=== PATIENT | female | born 1965 | race Caucasian/White ===

== ENCOUNTER → 2016-10-03 | Outpatient (CLI) | payer BC ==
[2016-10-03 11:45] LABS: BASO % 0.7 % (0.0-1.0); EOS % 0.6 % (0.0-3.0); LARGE UNSTAINED CELL # 0.1 K/mm3 (0.0-0.4); LARGE UNSTAINED CELL % 1.2 % (0.0-4.0); LYMPH # 1.9 K/mm3 (1.5-4.5); LYMPH % 24.2 % (24.0-44.0); MEAN CORPUSCULAR HEMOGLOBIN 30.4 pg (27.0-33.0); MEAN CORPUSCULAR HGB CONC 33.2 g/dl (32.0-36.5); MEAN CORPUSCULAR VOLUME 91.6 fl (80.0-96.0); MONO # 0.5 K/mm3 (0.0-0.8); MONO % 6.9 % (0.0-5.0); NEUTROPHILS # 4.9 K/mm3 (1.8-7.7); NEUTROPHILS % 66.3 % (36.0-66.0); PLATELET COUNT, AUTOMATED 305 k/mm3 (150-450); RED CELL DISTRIBUTION WIDTH 12.8 % (11.5-14.5); WHITE BLOOD COUNT 7.3 K/mm3 (4.0-10.0)
[2016-10-03 12:27] LABS: ALBUMIN 3.6 GM/DL (3.2-5.2); ALBUMIN/GLOBULIN RATIO 1.24 (1.00-1.93); ALKALINE PHOSPHATASE 79 U/L (45-117); ALT/SGPT 27 U/L (12-78); ANION GAP 6 MEQ/L (8-16); AST/SGOT 15 U/L (15-37); BILIRUBIN,TOTAL 0.6 MG/DL (0.2-1.0); BLOOD UREA NITROGEN 13 MG/DL (7-18); CALCIUM LEVEL 9.3 MG/DL (8.5-10.1); CARBON DIOXIDE LEVEL 29 MEQ/L (21-32); CHLORIDE LEVEL 106 MEQ/L (98-107); CHOLESTEROL LEVEL 191 MG/DL (<200); CREATININE FOR GFR 0.85 MG/DL (0.55-1.02); FREE T4 1.02 NG/DL (0.76-1.46); GLOMERULAR FILTRATION RATE > 60.0 (>51); GLUCOSE, FASTING 89 MG/DL (70-105); POTASSIUM SERUM 5.1 MEQ/L (3.5-5.1); SODIUM LEVEL 141 MEQ/L (136-145); TOTAL PROTEIN 6.5 GM/DL (6.4-8.2); TRIGLYCERIDES LEVEL 134 MG/DL (<150)
== END ==
LOC: M SMT 09:01
PROVIDERS: ATTEND Nurse Practitioner Family
DX: R53.83 Other fatigue (principal); E78.4 Other hyperlipidemia

== ENCOUNTER → 2017-04-14 | Outpatient (CLI) | payer BC ==
[2017-04-14 14:10] LABS: ALBUMIN 3.8 GM/DL (3.2-5.2); ALBUMIN/GLOBULIN RATIO 1.31 (1.00-1.93); ALKALINE PHOSPHATASE 71 U/L (45-117); ALT/SGPT 20 U/L (12-78); ANION GAP 8 MEQ/L (8-16); AST/SGOT 13 U/L (7-37); BILIRUBIN,TOTAL 0.5 MG/DL (0.2-1.0); BLOOD UREA NITROGEN 11 MG/DL (7-18); CALCIUM LEVEL 9.7 MG/DL (8.5-10.1); CARBON DIOXIDE LEVEL 29 MEQ/L (21-32); CHLORIDE LEVEL 106 MEQ/L (98-107); CHOLESTEROL LEVEL 198 MG/DL (<200); CREATININE FOR GFR 0.77 MG/DL (0.55-1.02); GLOMERULAR FILTRATION RATE > 60.0 (>51); GLUCOSE, FASTING 91 MG/DL (70-105); POTASSIUM SERUM 4.6 MEQ/L (3.5-5.1); SODIUM LEVEL 143 MEQ/L (136-145); TOTAL PROTEIN 6.7 GM/DL (6.4-8.2); TRIGLYCERIDES LEVEL 100 MG/DL (<150)
[2017-04-14 14:18] LABS: BASO # 0.1 10^3/uL (0.0-0.2); BASO % 0.8 % (0.0-1.0); EOS % 0.4 % (0.0-3.0); IMMATURE GRANULOCYTE % 0.5 % (0-0); LYMPH % 26.8 % (24.0-44.0); MEAN CORPUSCULAR HEMOGLOBIN 30.1 pg (27.0-33.0); MEAN CORPUSCULAR HGB CONC 32.7 g/dl (32.0-36.5); MEAN CORPUSCULAR VOLUME 92.2 fl (80.0-96.0); MONO # 0.7 10^3/uL (0.0-0.8); MONO % 9.3 % (0.0-5.0); NEUTROPHILS # 4.7 10^3/uL (1.8-7.7); NEUTROPHILS % 62.2 % (36.0-66.0); PLATELET COUNT, AUTOMATED 298 10^3/uL (150-450); RED CELL DISTRIBUTION WIDTH 13.2 % (11.5-14.5); WHITE BLOOD COUNT 7.5 10^3/uL (4.0-10.0)
== END ==
LOC: M SMT 08:08
PROVIDERS: ATTEND Nurse Practitioner Family
DX: F41.9 Anxiety disorder, unspecified (principal); E55.9 Vitamin D deficiency, unspecified; E78.4 Other hyperlipidemia

== ENCOUNTER 2017-07-13 06:58 | Day surgery (SDC) | payer BC ==
[2017-07-13] MEDS ORDERED: LIDOCAINE 2% INJ 100 MG/5 ML SDV (FOR ANES.) As Ordered (07:02)
[2017-07-13] MEDS ORDERED: PROPOFOL 200 MG/20 ML VIAL As Ordered (07:02)
[2017-07-13] MEDS ORDERED: NS 1,000 ML IV (08:00)
== END 2017-07-13 08:43 | disposition home or self-care (01) ==
LOC: M OPP 06:58
DX: Z12.11 Encounter for screening for malignant neoplasm of colon (principal); K64.0 First degree hemorrhoids; K62.1 Rectal polyp; K57.30 Diverticulosis of large intestine without perforation or abscess without bleeding; Z80.0 Family history of malignant neoplasm of digestive organs; R51 Headache; J44.9 Chronic obstructive pulmonary disease, unspecified; F17.210 Nicotine dependence, cigarettes, uncomplicated; Z79.82 Long term (current) use of aspirin; Z79.899 Other long term (current) drug therapy
CPT/HCPCS: 45380

== ENCOUNTER → 2017-10-07 | Outpatient (CLI) | payer BC ==
[2017-10-07 13:44] LABS: BASO % 0.6 % (0.0-1.0); EOS % 0.6 % (0.0-3.0); HEMATOCRIT 46.7 % (36.0-47.0); HEMOGLOBIN 15.3 g/dl (12.0-15.5); IMMATURE GRANULOCYTE % 0.5 % (0-3.0); LYMPH # 1.8 10^3/uL (1.5-4.5); LYMPH % 27.9 % (24.0-44.0); MEAN CORPUSCULAR HEMOGLOBIN 30.3 pg (27.0-33.0); MEAN CORPUSCULAR HGB CONC 32.8 g/dl (32.0-36.5); MEAN CORPUSCULAR VOLUME 92.5 fl (80.0-96.0); MONO # 0.6 10^3/uL (0.0-0.8); MONO % 9.1 % (0.0-5.0); NEUTROPHILS % 61.3 % (36.0-66.0); PLATELET COUNT, AUTOMATED 299 10^3/uL (150-450); RED BLOOD COUNT 5.05 10^6/uL (4.00-5.40); RED CELL DISTRIBUTION WIDTH 13.4 % (11.5-14.5); WHITE BLOOD COUNT 6.6 10^3/uL (4.0-10.0)
[2017-10-07 14:10] LABS: TOTAL 25(OH) VITAMIN D 52.8 NG/ML (30.0-100.0)
[2017-10-07 14:20] LABS: ALBUMIN 3.7 GM/DL (3.2-5.2); ALBUMIN/GLOBULIN RATIO 1.23 (1.00-1.93); ALKALINE PHOSPHATASE 74 U/L (45-117); ALT/SGPT 19 U/L (12-78); ANION GAP 5 MEQ/L (8-16); AST/SGOT 13 U/L (7-37); BILIRUBIN,TOTAL 0.4 MG/DL (0.2-1.0); BLOOD UREA NITROGEN 14 MG/DL (7-18); CALCIUM LEVEL 9.1 MG/DL (8.5-10.1); CARBON DIOXIDE LEVEL 28 MEQ/L (21-32); CHLORIDE LEVEL 111 MEQ/L (98-107); CHOLESTEROL LEVEL 210 MG/DL (<200); CREATININE FOR GFR 0.63 MG/DL (0.55-1.30); FREE T4 0.85 NG/DL (0.76-1.46); GLOMERULAR FILTRATION RATE > 60.0 (>51); GLUCOSE, FASTING 91 MG/DL (70-100); HDL CHOLESTEROL 60 MG/DL (>40); NON-HDL-C 150 MG/DL; POTASSIUM SERUM 4.9 MEQ/L (3.5-5.1); SODIUM LEVEL 144 MEQ/L (136-145); TOTAL PROTEIN 6.7 GM/DL (6.4-8.2); TRIGLYCERIDES LEVEL 95 MG/DL (<150)
== END ==
LOC: M SMT 08:10
DX: F41.9 Anxiety disorder, unspecified (principal); E55.9 Vitamin D deficiency, unspecified; E78.4 Other hyperlipidemia
CPT/HCPCS: 84443

== ENCOUNTER → 2018-04-08 | Outpatient (CLI) | payer BC ==
[2018-04-08 09:21] LABS: BASO # 0.1 10^3/uL (0.0-0.2); BASO % 0.6 % (0.0-1.0); EOS # 0.1 10^3/uL (0.0-0.50); EOS % 0.6 % (0.0-3.0); IMMATURE GRANULOCYTE % 0.5 % (0-3.0); LYMPH # 2.1 10^3/uL (1.5-4.5); LYMPH % 24.7 % (24.0-44.0); MEAN CORPUSCULAR HEMOGLOBIN 30.1 pg (27.0-33.0); MEAN CORPUSCULAR HGB CONC 32.7 g/dl (32.0-36.5); MEAN CORPUSCULAR VOLUME 92.1 fl (80.0-96.0); MONO # 0.7 10^3/uL (0.0-0.8); MONO % 8.1 % (0.0-5.0); NEUTROPHILS # 5.6 10^3/uL (1.8-7.7); NEUTROPHILS % 65.5 % (36.0-66.0); PLATELET COUNT, AUTOMATED 291 10^3/uL (150-450); RED BLOOD COUNT 5.32 10^6/uL (4.00-5.40); RED CELL DISTRIBUTION WIDTH 13.2 % (11.5-14.5); WHITE BLOOD COUNT 8.6 10^3/uL (4.0-10.0)
[2018-04-08 09:54] LABS: ALBUMIN 3.8 GM/DL (3.2-5.2); ALBUMIN/GLOBULIN RATIO 1.36 (1.00-1.93); ALKALINE PHOSPHATASE 89 U/L (45-117); ALT/SGPT 24 U/L (12-78); ANION GAP 5 MEQ/L (8-16); AST/SGOT 14 U/L (7-37); BILIRUBIN,TOTAL 0.4 MG/DL (0.2-1.0); BLOOD UREA NITROGEN 13 MG/DL (7-18); CALCIUM LEVEL 9.5 MG/DL (8.5-10.1); CARBON DIOXIDE LEVEL 30 MEQ/L (21-32); CHLORIDE LEVEL 106 MEQ/L (98-107); CHOLESTEROL LEVEL 184 MG/DL (<200); CHOLESTEROL RISK RATIO 3.228 (<5); GLOMERULAR FILTRATION RATE > 60.0 (>51); GLUCOSE, FASTING 96 MG/DL (70-100); HDL CHOLESTEROL 57 MG/DL (>40); LDL CHOLESTEROL 110 MG/DL (<100); NON-HDL-C 127 MG/DL; SODIUM LEVEL 141 MEQ/L (136-145); TOTAL PROTEIN 6.6 GM/DL (6.4-8.2); TRIGLYCERIDES LEVEL 85 MG/DL (<150)
[2018-04-08 11:38] LABS: TOTAL 25(OH) VITAMIN D 65.1 NG/ML (30.0-100.0)
== END ==
LOC: M WUC 08:20
DX: R91.8 Other nonspecific abnormal finding of lung field (principal); K21.9 Gastro-esophageal reflux disease without esophagitis; F17.210 Nicotine dependence, cigarettes, uncomplicated; E55.9 Vitamin D deficiency, unspecified; E78.49 Other hyperlipidemia
CPT/HCPCS: 80053

== ENCOUNTER → 2018-08-30 | Outpatient (CLI) | payer OTHER ==
[~2018-08-30] MED LIST: ASPI81TA26 PO; ATEN25TA PO; D-3-50003 PO; FLON1SPR NARES; NICO14DI3 TD; OMEP40CA2 PO; SIMV20TA2 PO; VENTAER INH; XANA0.25 PO
[2018-08-30 11:36] LABS: HEMATOCRIT 47.2 % (36.0-47.0); HEMOGLOBIN 15.5 g/dl (12.0-15.5); MEAN CORPUSCULAR HEMOGLOBIN 29.5 pg (27.0-33.0); MEAN CORPUSCULAR HGB CONC 32.8 g/dl (32.0-36.5); MEAN CORPUSCULAR VOLUME 89.9 fl (80.0-96.0); PLATELET COUNT, AUTOMATED 287 10^3/uL (150-450); RED BLOOD COUNT 5.25 10^6/uL (4.00-5.40); WHITE BLOOD COUNT 6.9 10^3/uL (4.0-10.0)
[2018-08-30 11:55] LABS: INR 0.94; PROTHROMBIN TIME 12.7 SECONDS (12.1-14.4)
[2018-08-30 11:56] LABS: BLOOD UREA NITROGEN 12 MG/DL (7-18); CALCIUM LEVEL 9.3 MG/DL (8.5-10.1); CARBON DIOXIDE LEVEL 27 MEQ/L (21-32); CHLORIDE LEVEL 106 MEQ/L (98-107); CREATININE FOR GFR 0.79 MG/DL (0.55-1.30); GLOMERULAR FILTRATION RATE > 60.0 (>51); GLUCOSE, FASTING 93 MG/DL (70-100); PARTIAL THROMBOPLASTIN TIME 28.9 SECONDS (25.4-37.6); POTASSIUM SERUM 4.2 MEQ/L (3.5-5.1); SODIUM LEVEL 139 MEQ/L (136-145)
[2018-08-30 11:56] LABS: APPEARANCE, URINE CLEAR (CLEAR); BACTERIA, URINE AUTO 3+ (NEGATIVE); BILIRUBIN, URINE AUTO NEGATIVE (NEGATIVE); BLOOD, URINE BLOOD 1+ (NEGATIVE); COLOR, URINE YELLOW (YELLOW); GLUCOSE, URINE (UA) AUTO NEGATIVE (NEGATIVE); KETONE, URINE AUTO NEGATIVE (NEGATIVE); LEUKOCYTE ESTERASE, URINE AUTO NEGATIVE (NEGATIVE); MUCUS, URINE SMALL (NEGATIVE); NITRITE, URINE AUTO NEGATIVE (NEGATIVE); PROTEIN, URINE AUTO NEGATIVE (NEGATIVE); RBC, URINE AUTO 2 /HPF (0-3); SQUAMOUS EPITHELIAL CELL UR AU 1 /HPF (0-6); UROBILINOGEN, URINE AUTO 0.2 mg/dL (0.0-2.0); WBC, URINE AUTO 1 /HPF (0-3)
[2018-08-30 11:57] LABS: ABG HCO3 23.4 MEQ/L (22.0-26.0); ABG O2 SATURATION 95.5 % (95.0-99.0); ABG PARTIAL PRESSURE CO2 34.7 mmHg (35.0-45.0); ABG PARTIAL PRESSURE O2 73.4 mmHg (75.0-100.0); ABG STANDARD HCO3 24.4 MEQ/L (22.0-26.0); ABG TOTAL CO2 24.4 MEQ/L (22.0-29.0); ABG pH (ARTERIAL) 7.446 UNITS (7.350-7.450)
--- NOTE | 2018-08-30 16:44 | ECGEPIP ---
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 Electronically Signed On 08-30-2018 16:44:03 EDT by Stuart Higgins
== END ==
LOC: M ADMPAT 11:03
PROVIDERS: ATTEND Thoracic Surgery (Cardiothoracic Vascular Surgery)
DX: Z01.810 Encounter for preprocedural cardiovascular examination (principal); R00.1 Bradycardia, unspecified

== ENCOUNTER 2018-09-06 05:53 | Inpatient (IN) | payer OTHER ==
[2018-08-30 12:00] VITALS: BP 126/78
--- NOTE | 2018-08-31 10:39 | REP ---
Clinical: Preoperative assessment. Pericardial cyst. Technique: PA and lateral. Comparison: 04/08/2018. Findings: The mediastinal contour remain stable and consistent with pericardial cyst. Airway is patent and midline. Chronic scoliosis noted. Lung rivas are well-aerated and clear. Skeletal structures are intact. Impression: No acute cardiopulmonary process. Electronically Signed by Chidi Matamoros MD 08/31/2018 10:31 A
[2018-09-06] VITALS (9 sets, daily range): BP systolic 90–109; BP diastolic 53–60
[~2018-09-06] VITALS: Ht 160 cm; Wt 87.0 kg
[~2018-09-06 05:53] MED LIST changes: -NICO14DI3 TD
[2018-09-06] MEDS ORDERED: NICO14DI3 TD (06:29)
[2018-09-06] MEDS ORDERED: MUPIROCIN 2% OINT 22 GM TUBE TOP ONE (06:30)
[2018-09-06] MEDS ORDERED: BUPIVACAINE HCL 0.5% 10 ML VIAL As Ordered ONE ×2 (06:46→07:48)
[2018-09-06] MEDS ORDERED: BUPIVACAINE LIPOSOME/PF 1.3% 20ML VIAL (13.3MG/ML)(EXPAREL)(C9290 PER1MG) As Ordered ONE (06:46)
[2018-09-06] MEDS ORDERED: MIDAZOLAM INJ 2 MG/2 ML VIAL (J2250) As Ordered ONE (06:52)
[2018-09-06] MEDS ORDERED: fentaNYL 100 MCG/2 ML INJECTION (J3010) As Ordered ONE (06:52)
[2018-09-06] MEDS ORDERED: CETACAINE SPRAY 5GM As Ordered ONE (06:56)
[2018-09-06] MEDS ORDERED: LR 1,000 ML IV ONE (07:00)
[2018-09-06] MEDS: MIDAZOLAM INJ 2 MG/2 ML VIAL (J2250) IV PRN ×2 (07:21→07:25)
[2018-09-06] MEDS: fentaNYL 100 MCG/2 ML INJECTION (J3010) IV PRN ×2 (07:21→07:32)
[2018-09-06] MEDS ORDERED: EPIDURAL/PCA KEYS XX PRN (08:45)
[2018-09-06] MEDS ORDERED: diphenhydrAMINE INJ 50MG/ML VIAL (J1200) IV PRN (08:45)
[2018-09-06] MEDS ORDERED: NALOXONE INJ 0.4 MG/1 ML VIAL (J2310) IV PRN (08:45)
[2018-09-06] MEDS ORDERED: ONDANSETRON 4MG/2ML VIAL (J2405) IV PRN ×2 (08:45→11:30)
[2018-09-06] MEDS ORDERED: WALLBOXKEY XX PRN (08:45)
[2018-09-06] MEDS ORDERED: METOCLOPRAMIDE INJ 10MG/2ML VIAL (J2765) IV PRN (08:45)
[2018-09-06] MEDS ORDERED: PERCOCET 5MG/325MG TAB PO PRN ×3 (11:00→11:30)
[2018-09-06] MEDS ORDERED: BISACODYL 10 MG SUPP PR PRN (11:00)
[2018-09-06] MEDS ORDERED: ACETAMINOPHEN TAB 650MG DOSE (2X325MG) PO PRN (11:00)
[2018-09-06] MEDS ORDERED: NORCO, ANEXSIA 5/325MG TABLET (HYDROcodone/ACETAMINOPHEN) PO PRN (11:00)
[2018-09-06] MEDS ORDERED: LEVALBUTEROL 1.25 MG/0.5 ML CONCENTRATE NEB NEB PRN (11:00)
[2018-09-06 11:15] LABS: ABG HCO3 22.9 MEQ/L (22.0-26.0); ABG O2 SATURATION 94.6 % (95.0-99.0); ABG PARTIAL PRESSURE CO2 44.1 mmHg (35.0-45.0); ABG PARTIAL PRESSURE O2 76.5 mmHg (75.0-100.0); ABG STANDARD HCO3 21.9 MEQ/L (22.0-26.0); ABG TOTAL CO2 24.3 MEQ/L (22.0-29.0); ABG pH (ARTERIAL) 7.334 UNITS (7.350-7.450)
[2018-09-06] MEDS: KETOROLAC 30 MG/ML VIAL (J1885) IV SCH ×2 (11:18→17:20)
[2018-09-06] MEDS ORDERED: fentaNYL 100 MCG/2 ML INJECTION (J3010) IV PRN (11:30)
[2018-09-06] MEDS ORDERED: LR 1,000 ML IV SCH (11:30)
[2018-09-06 11:32] LABS: BASO % 0.4 % (0.0-1.0); HEMATOCRIT 43.7 % (36.0-47.0); HEMOGLOBIN 14.1 g/dl (12.0-15.5); LYMPH # 0.9 10^3/uL (1.5-4.5); LYMPH % 8.2 % (24.0-44.0); MEAN CORPUSCULAR HGB CONC 32.3 g/dl (32.0-36.5); MEAN CORPUSCULAR VOLUME 89.9 fl (80.0-96.0); MONO # 0.2 10^3/uL (0.0-0.8); NEUTROPHILS # 9.8 10^3/uL (1.8-7.7); NEUTROPHILS % 88.8 % (36.0-66.0); PLATELET COUNT, AUTOMATED 263 10^3/uL (150-450); RED BLOOD COUNT 4.86 10^6/uL (4.00-5.40); WHITE BLOOD COUNT 11.1 10^3/uL (4.0-10.0)
[2018-09-06 11:55] LABS: BLOOD UREA NITROGEN 13 MG/DL (7-18); CALCIUM LEVEL 7.8 MG/DL (8.5-10.1); CARBON DIOXIDE LEVEL 24 MEQ/L (21-32); CHLORIDE LEVEL 113 MEQ/L (98-107); CREATININE FOR GFR 0.68 MG/DL (0.55-1.30); GLOMERULAR FILTRATION RATE > 60.0 (>51); GLUCOSE, FASTING 119 MG/DL (70-100); POTASSIUM SERUM 4.1 MEQ/L (3.5-5.1); SODIUM LEVEL 142 MEQ/L (136-145)
--- NOTE | 2018-09-06 12:08 | RO ---
DATE OF PROCEDURE: 09/06/2018 PREPROCEDURE DIAGNOSIS: Large pericardial cyst. POSTPROCEDURE DIAGNOSIS: Large pericardial cyst. PROCEDURE: Excision pericardial cyst via left VATS thoracoscopy and bronchoscopy, five level rib block. SURGEON: Rodo Tinajero MD ANESTHESIA: FINDINGS: Bronchoscopy revealed a normal branching tracheobronchial tree. There were scant secretions and these were suction aspirated. There were no intrabronchial lesions. The ethan was sharp. The pericardial excision revealed a very large pericardial cyst which extended to the anterior chest wall. This was removed completely by use of VATS techniques. Phrenic nerve was assiduously identified and preserved. DESCRIPTION OF PROCEDURE: Under satisfactory general anesthesia and single-lumen tube endotracheal intubation, the bronchoscope was placed into the tracheobronchial tree. The above-findings were noted. Each segmental and subsegmental bronchus was thoroughly inspected, and there were no intrabronchial lesions. There was no impingement on the bronchus from the cyst. Patient then underwent double-lumen tube endotracheal intubation and turned into the right lateral decubitus position. Patient was positioned about 30 degrees from the supine. Draping lines were marked, and the patient was then prepped and draped in the usual sterile fashion. The first port incision was made in the approximate 6th intercostal space in the mid axillary line. This was done under insufflation, and the lung was not adherent to the chest wall. The pericardial cyst was then identified anteriorly. Two additional port incisions were made. Pericardial cyst was then taken down from the anterior chest wall. There were firm but loose adhesions from the cyst to the chest wall. This dissection was tediously continued until the entire chest wall was freed of the pericardial cyst. Attention was then turned towards the mediastinum where the phrenic nerve was identified. This was then dissected off the lateral pericardium. Finally, the great vessels were identified and the cyst was dissected off the pericardium covering the great vessels. This was all done by electrocautery and blunt dissection with peanuts and graspers. The midaxillary line 5-mm port incision was converted to a 12-mm port incision and an Endo Catch bag was placed and the cyst placed into the Endo Catch bag and delivered to the back table and eventually to pathology. Two chest tubes were placed, a #24 posterior curved tube and #24 anterior tube through two of the port incisions. The third portion incision was closed with running #0 Vicryl suture and running #4-0 Monocryl subcuticular suture. A five-level rib block was instilled with Exparel. The lung came nicely back to the chest wall under direct observation with the scope. Patient tolerated the procedure well, left the operating room in satisfactory condition to the recovery room.
--- NOTE | 2018-09-06 12:50 | REP ---
Portable chest, 11:20 a.m., single upright AP view: Comparison is 08/30/2018. The patient's previously known large left pericardial cyst is no longer identified. There are two left thoracotomy tubes as an interval change. There is no pneumothorax or pleural fluid collection. There is atelectasis inferiorly in the left lung. There is atelectasis inferiorly in the right lung. Right lung is otherwise clear. Cardiac size is normal. The mor, mediastinum, skeletal structures are unremarkable. There is an epidural catheter. Impression: 2. Left thoracotomy tubes. No pneumothorax. Atelectasis in the lung bases bilaterally. The previously known large pericardial cyst on the left is no longer identified. Electronically Signed by Keenan Fowler MD 09/06/2018 12:41 P
[2018-09-06] MEDS ORDERED: NS 500 ML IV SCH (13:00)
[2018-09-06] MEDS: FENTANYL/BUPIVACAINE/NACL BAG 250 ML EPIDURAL SCH (13:00)
[2018-09-06] MEDS: DOCUSATE SODIUM 100 MG CAP PO SCH ×2 (13:47→21:00)
[2018-09-06] MEDS: MOM 30ML SUSPENSION UDC PO SCH (13:48)
[2018-09-06] MEDS: HEPARIN SOD (PORCINE) 5000 UNITS/ML VIAL SC SCH (13:48)
[2018-09-06] MEDS: ASPIRIN 81 MG ENTERIC TAB PO SCH (13:48)
[2018-09-06] MEDS: SIMVASTATIN 20 MG TAB PO SCH (13:48)
[2018-09-06] MEDS: VITAMIN D 1,000 INTERNATIONAL UNITS TABLET PO SCH (13:49)
[2018-09-06] MEDS: KCL 20MEQ IN D5/NS 1000ML 1,000 ML IV SCH (13:50)
[2018-09-06] MEDS: ATENOLOL 12.5MG PER 1/2 TABLET PO SCH (13:50)
[2018-09-06] MEDS: NICOTINE 14 MG/24 HR TRANSDERMAL TD SCH (13:50)
[2018-09-06] MEDS: FLUTICASONE PROP 0.05% NASAL SPRAY 16 GM (FLONASE) NARES SCH (13:50)
[2018-09-06] MEDS: LEVALBUTEROL 1.25 MG/0.5 ML CONCENTRATE NEB NEB SCH ×2 (14:01→19:39)
[2018-09-06] MEDS: ceFAZolin SOD 1 GM in D5W MINI-BAG PLUS 50 ML IV SCH (17:20)
[2018-09-07] MEDS: ceFAZolin SOD 1 GM in D5W MINI-BAG PLUS 50 ML IV SCH ×4 (00:51→23:38)
[2018-09-07] MEDS: KCL 20MEQ IN D5/NS 1000ML 1,000 ML IV SCH ×2 (00:52→13:32)
[2018-09-07] MEDS: HEPARIN SOD (PORCINE) 5000 UNITS/ML VIAL SC SCH ×3 (00:52→21:00)
[2018-09-07] MEDS: KETOROLAC 30 MG/ML VIAL (J1885) IV SCH ×5 (00:53→23:39)
[2018-09-07] MEDS: LEVALBUTEROL 1.25 MG/0.5 ML CONCENTRATE NEB NEB SCH ×4 (02:25→20:18)
[2018-09-07 04:00] VITALS: BP 103/59
[2018-09-07 05:39] LABS: ABG BASE EXCESS -1.6 (-2.0-2.0); ABG HCO3 23.2 MEQ/L (22.0-26.0); ABG O2 SATURATION 96.6 % (95.0-99.0); ABG PARTIAL PRESSURE CO2 39.8 mmHg (35.0-45.0); ABG STANDARD HCO3 23.1 MEQ/L (22.0-26.0); ABG TOTAL CO2 24.5 MEQ/L (22.0-29.0); ABG pH (ARTERIAL) 7.384 UNITS (7.350-7.450)
[2018-09-07 05:44] LABS: BASO % 0.1 % (0.0-1.0); EOS % 0.3 % (0.0-3.0); HEMATOCRIT 37.7 % (36.0-47.0); HEMOGLOBIN 12.4 g/dl (12.0-15.5); LYMPH # 1.6 10^3/uL (1.5-4.5); MEAN CORPUSCULAR HEMOGLOBIN 29.7 pg (27.0-33.0); MEAN CORPUSCULAR HGB CONC 32.9 g/dl (32.0-36.5); MEAN CORPUSCULAR VOLUME 90.2 fl (80.0-96.0); MONO # 0.9 10^3/uL (0.0-0.8); MONO % 7.1 % (0.0-5.0); NEUTROPHILS # 9.9 10^3/uL (1.8-7.7); NEUTROPHILS % 79.2 % (36.0-66.0); PLATELET COUNT, AUTOMATED 240 10^3/uL (150-450); RED BLOOD COUNT 4.18 10^6/uL (4.00-5.40); WHITE BLOOD COUNT 12.5 10^3/uL (4.0-10.0)
[2018-09-07 06:04] LABS: BLOOD UREA NITROGEN 8 MG/DL (7-18); CALCIUM LEVEL 8.3 MG/DL (8.5-10.1); CARBON DIOXIDE LEVEL 27 MEQ/L (21-32); CHLORIDE LEVEL 112 MEQ/L (98-107); CREATININE FOR GFR 0.56 MG/DL (0.55-1.30); GLOMERULAR FILTRATION RATE > 60.0 (>51); GLUCOSE, FASTING 103 MG/DL (70-100); POTASSIUM SERUM 4.1 MEQ/L (3.5-5.1); SODIUM LEVEL 144 MEQ/L (136-145)
[2018-09-07 07:53] VITALS: BP 88/59
[2018-09-07 08:32] VITALS: BP 104/68
[2018-09-07] MEDS: ATENOLOL 12.5MG PER 1/2 TABLET PO SCH (09:00)
[2018-09-07] MEDS: NICOTINE 14 MG/24 HR TRANSDERMAL TD SCH (09:00)
[2018-09-07] MEDS: FLUTICASONE PROP 0.05% NASAL SPRAY 16 GM (FLONASE) NARES SCH (09:00)
[2018-09-07] MEDS: PANTOPRAZOLE 40MG TAB (PROTONIX) PO SCH (09:24)
[2018-09-07] MEDS: ASPIRIN 81 MG ENTERIC TAB PO SCH (09:24)
[2018-09-07] MEDS: VITAMIN D 1,000 INTERNATIONAL UNITS TABLET PO SCH (09:24)
[2018-09-07] MEDS: MOM 30ML SUSPENSION UDC PO SCH (09:24)
[2018-09-07] MEDS: DOCUSATE SODIUM 100 MG CAP PO SCH ×2 (09:24→21:00)
[2018-09-07] MEDS: SIMVASTATIN 20 MG TAB PO SCH (09:25)
[2018-09-07] MEDS: FENTANYL/BUPIVACAINE/NACL BAG 250 ML EPIDURAL SCH (09:26)
--- NOTE | 2018-09-07 09:38 | REP ---
Chest x-ray: Two views. History: Status post pericardial cyst excision. Comparison chest x-ray is from September 06, 2018. Comparison chest CT July 19, 2018. Findings: There are two drainage catheters in the left base pleural space. There is linear plate-like atelectasis in the perihilar region. Some volume loss is seen in the left with elevation of the left hemidiaphragm. Mild plate-like atelectasis is seen at the base as well on the left. An epidural catheter is seen along with EKG electrodes. The is no evidence of pneumothorax or hydrothorax. Electronically Signed by Jose Shay MD 09/07/2018 10:25 A
--- NOTE | 2018-09-07 11:28 | IPN ---
DATE: 09/07/2018 This is now the first postoperative day for Mrs. Mccloud who has had a stable night of surgery. Her pain is being well controlled with the epidural. Her vital signs show a maximum temperature (T-max) of 98.2 with a heart rate that ranges between 73 and 76 in sinus rhythm. Respiratory rate is constant at 18, who is 93% saturated on 2 liters nasal cannula and has blood pressures ranging between 90/53 and 103/59. Her intake and output over the past 24 hours is being recorded as 3840 in and 2545 out for a positivity of 1295 mL. She has put out 150 mL out the chest tube and there is no air leak. Weight today is 85.6 kg compared to 81 kg yesterday. On physical examination her lungs show normal fascicular sounds without wheezes, rhonchi or rales. Percussion note is full to the diaphragm. Cardiac exam is without murmurs, clicks or gallops or rubs. I cannot feel her point of maximum impulse (PMI). S1 and S2 are normal. Abdomen is soft and nontender. Bowel sounds are positive. There is no hepatomegaly. No costovertebral angle (CVA) tenderness. Extremities show no pretibial edema with no calf tenderness. No differential swelling of the upper extremities. Skin is warm, dry and perfused without cyanosis or mottling including that of the nail beds and knees. Neck is supple. There is no jugular venous distention. No subcutaneous emphysema. Trachea is midline. Mouth shows her mucous membranes to be pink and moist. Lips and commissures are without lesions. There is no thrush. Eyes show her pupils to be equal and reactive. Extraocular movements intact. Sclerae nonicteric. Neurologic shows II-XII intact along with gross motor and gross sensation intact. Gait is not tested. Psychiatric showed her to be awake, alert and oriented times three with appropriate and affect and conversational. Her blood gases this morning show a pH of 7.38, pCO2 39, pO2 87 on the above oxygen. She is at base excess of -1.6. White count today is 12.5 with hemoglobin and hematocrit of 12.4 and 37.7, down from 14.1 and 43.7 yesterday. This is probably secondary to hemodilution. Platelet count is 240 and stable and differential shows 79% neutrophils, 15% lymphocytes, 7% monocytes. There are no immature forms or toxic granulations. Her electrolytes are normal with a BUN and creatinine of 8 and 0.56 and a glucose of 1.3 and a calcium 8.3. Her chest x-ray today shows her lung fully expanded to the chest wall. Chest tubes are in good place. Pericardial cyst is now absent from the preoperative film. IMPRESSION: 1. Postop day #1 status post excision of pericardial cyst. 2. Asthma. 3. Tobacco dependence. 4. Gastroesophageal reflux disease. 5. Hyperlipidemia. PLAN/DISCUSSION: I will discontinue her chest tubes today. I will wean the epidural and discontinue the Howard. If her pain is well controlled, I will consider discharging her tomorrow. I will also gently diurese her.
[2018-09-07] MEDS ORDERED: FUROSEMIDE 20 MG/2 ML VIAL (J1940) IV ONE (11:30)
[2018-09-07 12:07] VITALS: BP 101/58
[2018-09-07 16:00] VITALS: BP 116/64
[2018-09-07 20:00] VITALS: BP 90/60
[2018-09-08] VITALS: BP 115/71
[2018-09-08] MEDS: LEVALBUTEROL 1.25 MG/0.5 ML CONCENTRATE NEB NEB SCH ×2 (01:53→07:29)
[2018-09-08] MEDS: KCL 20MEQ IN D5/NS 1000ML 1,000 ML IV SCH (02:51)
[2018-09-08 04:00] VITALS: BP 118/73
[2018-09-08 05:41] LABS: BASO % 0.5 % (0.0-1.0); EOS % 0.3 % (0.0-3.0); HEMATOCRIT 36.8 % (36.0-47.0); HEMOGLOBIN 11.9 g/dl (12.0-15.5); LYMPH # 2.4 10^3/uL (1.5-4.5); LYMPH % 27.9 % (24.0-44.0); MEAN CORPUSCULAR HEMOGLOBIN 29.3 pg (27.0-33.0); MEAN CORPUSCULAR HGB CONC 32.3 g/dl (32.0-36.5); MEAN CORPUSCULAR VOLUME 90.6 fl (80.0-96.0); MONO # 0.7 10^3/uL (0.0-0.8); MONO % 8.1 % (0.0-5.0); NEUTROPHILS # 5.5 10^3/uL (1.8-7.7); PLATELET COUNT, AUTOMATED 222 10^3/uL (150-450); RED BLOOD COUNT 4.06 10^6/uL (4.00-5.40); WHITE BLOOD COUNT 8.7 10^3/uL (4.0-10.0)
[2018-09-08 06:01] LABS: BLOOD UREA NITROGEN 10 MG/DL (7-18); CALCIUM LEVEL 8.1 MG/DL (8.5-10.1); CARBON DIOXIDE LEVEL 27 MEQ/L (21-32); CHLORIDE LEVEL 110 MEQ/L (98-107); CREATININE FOR GFR 0.66 MG/DL (0.55-1.30); GLOMERULAR FILTRATION RATE > 60.0 (>51); GLUCOSE, FASTING 91 MG/DL (70-100); POTASSIUM SERUM 3.9 MEQ/L (3.5-5.1); SODIUM LEVEL 143 MEQ/L (136-145)
[2018-09-08] MEDS: KETOROLAC 30 MG/ML VIAL (J1885) IV SCH ×2 (06:28→12:49)
[2018-09-08 08:00] VITALS: BP 125/70
--- NOTE | 2018-09-08 08:17 | REP ---
PA and lateral chest: Comparison is 09/07/2018. The two left thoracotomy tubes have been removed. The epidural catheter has been removed. There is mild atelectasis inferiorly in the left lung, left lung is otherwise clear. The right lung is clear. Cardiac size is normal. The mor and mediastinum are unremarkable. There is thoracic scoliosis, unchanged. Electronically Signed by Keenan Fowler MD 09/08/2018 08:09 A
[2018-09-08] MEDS: MOM 30ML SUSPENSION UDC PO SCH (08:55)
[2018-09-08] MEDS: PANTOPRAZOLE 40MG TAB (PROTONIX) PO SCH (08:55)
[2018-09-08] MEDS: HEPARIN SOD (PORCINE) 5000 UNITS/ML VIAL SC SCH ×2 (08:55→09:00)
[2018-09-08] MEDS: DOCUSATE SODIUM 100 MG CAP PO SCH (08:57)
[2018-09-08] MEDS: VITAMIN D 1,000 INTERNATIONAL UNITS TABLET PO SCH (08:57)
[2018-09-08] MEDS: ceFAZolin SOD 1 GM in D5W MINI-BAG PLUS 50 ML IV SCH (08:57)
[2018-09-08] MEDS: ASPIRIN 81 MG ENTERIC TAB PO SCH (08:57)
[2018-09-08] MEDS: ATENOLOL 12.5MG PER 1/2 TABLET PO SCH ×2 (08:58→09:00)
[2018-09-08] MEDS: SIMVASTATIN 20 MG TAB PO SCH ×2 (08:58→09:00)
[2018-09-08] MEDS: FENTANYL/BUPIVACAINE/NACL BAG 250 ML EPIDURAL SCH (09:00)
[2018-09-08] MEDS: FLUTICASONE PROP 0.05% NASAL SPRAY 16 GM (FLONASE) NARES SCH (09:00)
[2018-09-08] MEDS: NICOTINE 14 MG/24 HR TRANSDERMAL TD SCH (09:00)
--- NOTE | 2018-09-08 12:24 | DSES ---
DATE OF ADMISSION: 09/06/2018 DATE OF DISCHARGE: 09/08/2018 DISCHARGE DIAGNOSES: Pericardial cyst. Tobacco dependence. Esophageal reflux disease. Hyperlipidemia. Postoperative day #2, status post excision of pericardial cyst with VATS technique. HOSPITAL COURSE: Patient is a 52-year-old white female who was found to have a large anterior mediastinal mass, which on CT scanning was clearly a pericardial cyst. This was followed for 6 months with increasing diameter and therefore, patient was taken to the operating room where she underwent excision of the pericardial cyst with fluoroscopic techniques. During the procedure, the phrenic nerve was identified and avoided. She had a benign postoperative course with the chest tubes being removed on the first postoperative day. She was ambulated without shortness of breath. She has some residual pain controlled with nonsteroidal anti-inflammatory drugs (NSAIDs). She is being discharge today on her home medications which include: - Ventolin two puffs as needed shortness of breath. - Xanax 0.25 mg twice a day as needed at anxiety. - aspirin 81 mg daily - atenolol 2.5 mg daily - vitamin D3 5000 units daily - Flonase two sprays to each nares daily - NicoDerm patch 14 mg daily - omeprazole 40 mg daily - simvastatin 20 mg nightly She is instructed to take Tylenol and/or Ibuprofen for pain control. Her chest x-ray today shows a gastric bubble with a minimally elevated left hemidiaphragm. There are no infiltrates. Costophrenic angles are sharp. I will see her back in the office in one week in postoperative followup. edited: 09/09/2018 0728 tkf ACE
== END 2018-09-08 13:15 | disposition home or self-care (01) | DRG 167 ==
LOC: M OR 05:53 → M PCU 12:49
PROVIDERS: ADMIT Thoracic Surgery (Cardiothoracic Vascular Surgery); ATTEND Thoracic Surgery (Cardiothoracic Vascular Surgery)
PROC: 02B Heart and Great Vessels, Excision (ICD-10-PCS; principal; 2018-09-06 07:30)
DX: I31.8 Other specified diseases of pericardium (principal); E55.9 Vitamin D deficiency, unspecified; F17.200 Nicotine dependence, unspecified, uncomplicated; K21.9 Gastro-esophageal reflux disease without esophagitis; E78.5 Hyperlipidemia, unspecified

== ENCOUNTER → 2018-09-16 | Outpatient (CLI) | payer OTHER ==
[~2018-09-16] MED LIST changes: +NICO14DI3 TD
--- NOTE | 2018-09-16 12:30 | REP ---
CHEST X-RAY: TWO VIEWS. HISTORY: Followup chest x-ray. Comparison study, September 08, 2018. Patient status post excision of pericardial cyst. FINDINGS: There is a moderate thoracolumbar scoliotic curve. Left hemidiaphragm remains slightly elevated. There is mild platelike atelectasis just above the left hemidiaphragm. Cardiomediastinal silhouette is unremarkable. Lung rivas are otherwise clear. Pleural angles are sharp. IMPRESSION: Somewhat elevated left hemidiaphragm with some mild platelike atelectasis in the left base. Scoliosis. Otherwise no acute disease. Electronically Signed by Jose Shay MD 09/16/2018 12:39 P
== END ==
LOC: M SMT 11:17
PROVIDERS: ATTEND Thoracic Surgery (Cardiothoracic Vascular Surgery)
DX: I31.8 Other specified diseases of pericardium (principal); J98.6 Disorders of diaphragm; M41.9 Scoliosis, unspecified

== ENCOUNTER → 2018-10-07 | Outpatient (REF) | payer OTHER | LOC: M WUC 10:11 | PROVIDERS: ATTEND Physician Assistant | DX: N39.0 Urinary tract infection, site not specified (principal) ==

== ENCOUNTER → 2018-11-01 | Outpatient (CLI) | payer OTHER ==
[2018-11-01 10:48] LABS: BASO # 0.1 10^3/uL (0.0-0.2); EOS % 0.7 % (0.0-3.0); HEMATOCRIT 46.7 % (36.0-47.0); HEMOGLOBIN 15.5 g/dl (12.0-15.5); LYMPH # 1.8 10^3/uL (1.5-4.5); MEAN CORPUSCULAR HEMOGLOBIN 30.4 pg (27.0-33.0); MEAN CORPUSCULAR HGB CONC 33.2 g/dl (32.0-36.5); MEAN CORPUSCULAR VOLUME 91.6 fl (80.0-96.0); MONO # 0.6 10^3/uL (0.0-0.8); MONO % 9.6 % (0.0-5.0); NEUTROPHILS # 3.6 10^3/uL (1.8-7.7); PLATELET COUNT, AUTOMATED 289 10^3/uL (150-450); WHITE BLOOD COUNT 6.1 10^3/uL (4.0-10.0)
[2018-11-01 11:09] LABS: ALBUMIN 3.7 GM/DL (3.2-5.2); ALT/SGPT 46 U/L (12-78); BILIRUBIN,TOTAL 0.3 MG/DL (0.2-1.0); BLOOD UREA NITROGEN 13 MG/DL (7-18); CALCIUM LEVEL 9.5 MG/DL (8.5-10.1); CARBON DIOXIDE LEVEL 28 MEQ/L (21-32); CHLORIDE LEVEL 108 MEQ/L (98-107); CHOLESTEROL LEVEL 209 MG/DL (<200); CHOLESTEROL RISK RATIO 3.603 (<5); CREATININE FOR GFR 0.65 MG/DL (0.55-1.30); GLOMERULAR FILTRATION RATE > 60.0 (>51); GLUCOSE, FASTING 86 MG/DL (70-100); HDL CHOLESTEROL 58 MG/DL (>40); LDL CHOLESTEROL 126 MG/DL (<100); NON-HDL-C 151 MG/DL; POTASSIUM SERUM 4.9 MEQ/L (3.5-5.1); SODIUM LEVEL 142 MEQ/L (136-145); TOTAL PROTEIN 6.6 GM/DL (6.4-8.2); TRIGLYCERIDES LEVEL 126 MG/DL (<150)
[2018-11-01 11:22] LABS: TOTAL 25(OH) VITAMIN D 50.7 NG/ML (30.0-100.0)
--- NOTE | 2018-11-01 12:19 | REP ---
LEFT HAND, FOUR VIEWS: HISTORY: Pain. There is no acute fracture or dislocation. The joint spaces are normal in appearance. IMPRESSION: There is no acute fracture or dislocation. Electronically Signed by Ariel Feliciano MD 11/01/2018 12:23 P
== END ==
LOC: M SMT 09:25
PROVIDERS: ATTEND Nurse Practitioner Family
DX: M79.642 Pain in left hand (principal); E55.9 Vitamin D deficiency, unspecified; E78.49 Other hyperlipidemia; I31.8 Other specified diseases of pericardium

== ENCOUNTER → 2018-12-16 | Outpatient (CLI) | payer OTHER ==
--- NOTE | 2018-12-17 09:04 | REP ---
Clinical: Postoperative assessment. Technique: PA and lateral. Comparison: 09/16/2018. Findings: Chronic stable scoliosis. Cardiac silhouette is normal. Lung rivas are relatively clear although trace left basilar atelectasis is again suggested. No further consolidation. No effusion. No pneumothorax. Skeletal structures stable. Impression: Chronic stable changes. Minimal left basilar atelectasis. Electronically Signed by Chidi Matamoros MD 12/17/2018 08:55 A
== END ==
LOC: M SMT 08:52
PROVIDERS: ATTEND Thoracic Surgery (Cardiothoracic Vascular Surgery)
DX: Z48.812 Encounter for surgical aftercare following surgery on the circulatory system (principal)

== ENCOUNTER → 2019-01-13 | Outpatient (CLI) | payer OTHER ==
--- NOTE | 2019-01-13 12:14 | REP ---
REASON: Pain and swelling. TECHNIQUE: Multiple ultrasonographic images of the deep venous structures of the thigh were obtained from the common femoral vein to the popliteal vein along with Doppler interrogation and color flow Doppler images. FINDINGS: There is no abnormal echogenic material seen within any of the visualized deep venous structures that would suggest acute thrombosis. Coaptation is unremarkable throughout. Doppler interrogation shows an expected response to respiratory variability and augmentation. The color flow images show what appears to be a normal vascular pattern throughout. IMPRESSION: There is no ultrasonographic evidence of deep venous thrombosis involving any of the visualized deep venous structures of the left thigh, as described above. Electronically Signed by Reagan Minor DO 01/13/2019 12:20 P
== END ==
LOC: M RAD 11:12
PROVIDERS: ATTEND Nurse Practitioner Family
DX: M79.662 Pain in left lower leg (principal)

== ENCOUNTER → 2019-03-14 | Outpatient (CLI) | payer OTHER ==
[~2019-03-14] MED LIST changes: -OMEP40CA2 PO; +OMEP40CA97 PO
--- NOTE | 2019-03-15 07:20 | REP ---
CHEST FLUOROSCOPY SNIFF TEST: I observed the patient under fluoroscopy with real-time breathing including deep inspiration and expiration. There is normal diaphragmatic excursion bilaterally. Both hemidiaphragms move in a symmetrical and appropriate fashion with deep inspiration and expiration. There is no paradoxical motion or diaphragmatic paralysis. IMPRESSION: Normal diaphragmatic excursion bilaterally. Fluoroscopy time 0.9 minutes. Electronically Signed by Keenan Sánchez MD 03/16/2019 11:36 A
== END ==
LOC: M RAD 13:01
PROVIDERS: ATTEND Thoracic Surgery (Cardiothoracic Vascular Surgery)
DX: J98.6 Disorders of diaphragm (principal)

== ENCOUNTER → 2019-05-30 | Outpatient (CLI) | payer OTHER ==
[~2019-05-30] MED LIST changes: -SIMV20TA2 PO; +SIMV20TA22 PO
[2019-05-30 09:36] LABS: BASO # 0.1 10^3/uL (0.0-0.2); BASO % 0.9 % (0.0-1.0); EOS # 0.1 10^3/uL (0.0-0.5); EOS % 0.7 % (0.0-3.0); HEMATOCRIT 47.6 % (36.0-47.0); HEMOGLOBIN 15.2 g/dl (12.0-15.5); LYMPH # 2.2 10^3/uL (1.5-5.0); LYMPH % 31.4 % (24.0-44.0); MEAN CORPUSCULAR HEMOGLOBIN 28.9 pg (27.0-33.0); MEAN CORPUSCULAR HGB CONC 31.9 g/dl (32.0-36.5); MEAN CORPUSCULAR VOLUME 90.5 fl (80.0-96.0); MONO # 0.5 10^3/uL (0.0-0.8); MONO % 7.1 % (0.0-5.0); NEUTROPHILS # 4.2 10^3/uL (1.5-8.5); NEUTROPHILS % 59.5 % (36.0-66.0); PLATELET COUNT, AUTOMATED 306 10^3/uL (150-450); RED BLOOD COUNT 5.26 10^6/uL (4.00-5.40)
[2019-05-30 10:07] LABS: ALBUMIN 3.6 GM/DL (3.2-5.2); ALT/SGPT 59 U/L (12-78); BILIRUBIN,TOTAL 0.4 MG/DL (0.2-1.0); BLOOD UREA NITROGEN 17 MG/DL (7-18); CALCIUM LEVEL 9.5 MG/DL (8.5-10.1); CARBON DIOXIDE LEVEL 26 MEQ/L (21-32); CHLORIDE LEVEL 110 MEQ/L (98-107); CHOLESTEROL LEVEL 185 MG/DL (<200); CHOLESTEROL RISK RATIO 3.627 (<5); CREATININE FOR GFR 0.71 MG/DL (0.55-1.30); GLOMERULAR FILTRATION RATE > 60.0 (>51); GLUCOSE, FASTING 87 MG/DL (70-100); HDL CHOLESTEROL 51 MG/DL (>40); LDL CHOLESTEROL 112 MG/DL (<100); NON-HDL-C 134 MG/DL; POTASSIUM SERUM 5.4 MEQ/L (3.5-5.1); SODIUM LEVEL 142 MEQ/L (136-145); TOTAL PROTEIN 6.6 GM/DL (6.4-8.2); TRIGLYCERIDES LEVEL 111 MG/DL (<150)
[2019-05-30 10:08] LABS: TOTAL 25(OH) VITAMIN D 54.8 NG/ML (30.0-100.0)
[2019-05-30 11:34] LABS: HEMOGLOBIN A1c 5.8 %
== END ==
LOC: M PLALAB 08:10
PROVIDERS: ATTEND Physician Assistant
DX: E55.9 Vitamin D deficiency, unspecified (principal); I10 Essential (primary) hypertension; E78.2 Mixed hyperlipidemia; Z83.3 Family history of diabetes mellitus; J30.9 Allergic rhinitis, unspecified

== ENCOUNTER → 2019-07-16 | Outpatient (REF) | payer OTHER | LOC: M LAB REF 18:49 | PROVIDERS: ATTEND Physician Assistant | DX: R30.0 Dysuria (principal) ==

== ENCOUNTER → 2020-08-08 | Outpatient (CLI) | payer BC ==
[2020-08-08 20:28] LABS: ALT/SGPT 51 U/L (12-78); BLOOD UREA NITROGEN 13 MG/DL (7-18); CALCIUM LEVEL 9.8 MG/DL (8.5-10.1); CARBON DIOXIDE LEVEL 32 MEQ/L (21-32); CHLORIDE LEVEL 108 MEQ/L (98-107); CREATININE FOR GFR 0.79 MG/DL (0.55-1.30); GLOMERULAR FILTRATION RATE > 60.0 (>51); GLUCOSE, FASTING 119 MG/DL (70-100); POTASSIUM SERUM 4.8 MEQ/L (3.5-5.1); SODIUM LEVEL 143 MEQ/L (136-145)
[2020-08-08 20:29] LABS: BILIRUBIN,TOTAL 0.3 MG/DL (0.2-1.0); CHOLESTEROL LEVEL 242 MG/DL (<200); CHOLESTEROL RISK RATIO 4.653 (<5); FREE T4 0.96 NG/DL (0.76-1.46); HDL CHOLESTEROL 52 MG/DL (>40); LDL CHOLESTEROL 141 MG/DL (<100); NON-HDL-C 190 MG/DL; THYROID STIMULATING HORMONE 0.667 uIU/ML (0.358-3.740); TOTAL PROTEIN 7.1 GM/DL (6.4-8.2); TRIGLYCERIDES LEVEL 243 MG/DL (<150)
[2020-08-08 20:30] LABS: TOTAL 25(OH) VITAMIN D 48.8 NG/ML (30.0-100.0)
--- NOTE | 2020-08-09 03:58 | REP ---
INDICATION: RADICULOPATHY LUMBAR REGION COMPARISON: None. TECHNIQUE: AP, lateral, coned-down views of the lumbar spine. FINDINGS: There is no evidence for acute fracture/compression injury or acute subluxation. Very mild chronic dextroconvex scoliosis noted in the frontal projection. Lateral views suggest subtle, chronic appearing 3 mm of anterolisthesis at the L4-5 level. Moderate multilevel degenerative changes are also noted including endplate sclerosis with very early marginal spurring, facet arthropathy and minimal disc space narrowing. IMPRESSION: 1. No acute fracture / compression injury or subluxation. 2. Chronic appearing age-related degenerative changes <Electronically signed by Chidi Matamoros > 08/09/20 0357
--- NOTE | 2020-08-09 03:59 | REP ---
INDICATION: RADICULOPATHY LUMBAR REGION COMPARISON: None. TECHNIQUE: Single AP view of the pelvis. FINDINGS: Osseous structures, joint spaces, and surrounding soft tissues are symmetric and age-appropriate. No acute fracture or dislocation. No significant overt degenerative changes noted. IMPRESSION: Normal age-appropriate pelvic radiograph <Electronically signed by Chidi Matamoros > 08/09/20 0354
--- NOTE | 2020-08-09 04:18 | REP ---
INDICATION: RADICULOPATHY LUMBAR REGION COMPARISON: None. TECHNIQUE: AP and frog-lateral views of the left hip FINDINGS: Hip joint appears relatively age-appropriate and within normal limits. No significant overt osteoarthritic degenerative changes are appreciated. Joint space appears relatively maintained on neutral and frog-lateral views. Surrounding soft tissues are normal. IMPRESSION: Relatively age-appropriate left hip radiographs. <Electronically signed by Chidi Matamoros > 08/09/20 0414
== END ==
LOC: M WUC 15:39
PROVIDERS: ATTEND Nurse Practitioner Family
DX: I10 Essential (primary) hypertension (principal); M54.17 Radiculopathy, lumbosacral region

== ENCOUNTER → 2020-08-21 | Outpatient (CLI) | payer BC ==
--- NOTE | 2020-08-21 09:02 | REP ---
INDICATION: (PRIMARY) HTN/ABD PAIN FM H/O AAA/SWELL RT NECK COMPARISON: None. TECHNIQUE: Grayscale and color evaluation using linear high-frequency transducer. FINDINGS: Directed ultrasound examination along the right supraclavicular region of the neck demonstrates no obvious abnormality. Contralateral side with scanned for comparison and appears relatively symmetric. IMPRESSION: No obvious abnormality noted. <Electronically signed by Chidi Matamoros > 08/21/20 [id number]
--- NOTE | 2020-08-21 09:05 | REP ---
INDICATION: (PRIMARY) HTN/ABD PAIN FM H/O AAA/SWELL RT NECK COMPARISON: None TECHNIQUE: Real time B-mode mays scale ultrasound examination using curved array transducer. FINDINGS: Liver, spleen, and pancreas are essentially normal in appearance and size. The spleen is mildly enlarged measuring 10.7 x 10.9 x 4.4 cm (splenic index 513). No focal hepatic, splenic or pancreatic lesions are identified. Gallbladder demonstrates multiple small benign appearing polyps measuring up to 2 mm without gallstones, wall thickening, or pericholecystic fluid. No sonographic Sanchez sign elicited. No biliary ductal dilatation is appreciated and the common bile duct measures 3 mm diameter. The bilateral kidneys are normal in rate form shape without hydronephrosis or obvious abnormality. Right kidney measures 11.4 x 5.7 x 4.1 cm. Left kidney measures 11.6 x 5.1 x 4.4 cm and includes 1.5 cm midpole simple cyst. Mild atherosclerotic changes to the aorta are suggested. Aorta measures 2.3 cm maximal diameter without aneurysm. IMPRESSION: Essentially normal complete abdominal ultrasound. <Electronically signed by Chidi Matamoros > 08/21/20 0902
== END ==
LOC: M RAD 07:35
PROVIDERS: ATTEND Nurse Practitioner Family
DX: I10 Essential (primary) hypertension (principal); R22.1 Localized swelling, mass and lump, neck; R10.9 Unspecified abdominal pain

== ENCOUNTER → 2020-08-21 | Outpatient (CLI) | payer BC ==
--- NOTE | 2020-08-21 15:38 | REPMRS ---
Patient History The patient states she has not had a clinical breast exam in over a year. Patient is postmenopausal. No known family history of cancer. Digital Woman Screen Mammo: August 21, 2020 - Exam #: [id number] Bilateral CC and MLO view(s) were taken. Technologist: RT Carmela Prior study comparison: June 25, 2015, bilateral digital mammo screening bilat, performed at [facility]. June 23, 2014, bilateral digital mammo screening bilat, performed at [facility]. May 26, 2013, digital mammo diagnostic bilateral, performed at [facility]. FINDINGS: There are scattered fibroglandular densities. The Volpara volumetric breast density category is:B. There has been no change in the appearance of the mammogram from the prior studies. There is a mild amount of scattered fibroglandular density which is fairly symmetric. There is no interval development of dominant mass, architectural distortion, or grouped microcalcification suggestive of malignancy. 3-D tomosynthesis shows no additional findings. Assessment: BI-RADS/ACR category 1 mammogram. Negative Mammogram. Recommendation Routine screening mammogram of both breasts in 1 year (for women over age 40). This patient's [facility] Lifetime Breast Cancer Risk is estimated at 11.4 %. This mammogram was interpreted with the aid of an FDA-approved computer-aided dectection system. Electronically Signed By: Rodriguez Shay MD 08/21/20 [id number]
== END ==
LOC: M WHC 13:16
PROVIDERS: ATTEND Nurse Practitioner Family
DX: Z12.31 Encounter for screening mammogram for malignant neoplasm of breast (principal); Z78.0 Asymptomatic menopausal state

== ENCOUNTER → 2021-09-18 | Outpatient (CLI) | payer BC ==
[~2021-09-18] MED LIST changes: +OMEP40CA4 PO; -OMEP40CA97 PO
[2021-09-18 10:55] LABS: ALBUMIN 3.7 GM/DL (3.2-5.2); ALT/SGPT 51 U/L (12-78); BILIRUBIN,TOTAL 0.4 MG/DL (0.2-1.0); BLOOD UREA NITROGEN 18 MG/DL (7-18); CALCIUM LEVEL 10.1 MG/DL (8.5-10.1); CARBON DIOXIDE LEVEL 27 MEQ/L (21-32); CHLORIDE LEVEL 110 MEQ/L (98-107); CHOLESTEROL LEVEL 222 MG/DL (<200); CREATININE FOR GFR 0.72 MG/DL (0.55-1.30); GLOMERULAR FILTRATION RATE > 60.0 (>51); GLUCOSE, FASTING 94 MG/DL (70-100); HDL CHOLESTEROL 49 MG/DL (>40); LDL CHOLESTEROL 141 MG/DL (<100); NON-HDL-C 173 MG/DL; POTASSIUM SERUM 4.7 MEQ/L (3.5-5.1); SODIUM LEVEL 141 MEQ/L (136-145); TOTAL PROTEIN 6.4 GM/DL (6.4-8.2); TRIGLYCERIDES LEVEL 159 MG/DL (<150)
[2021-09-18 11:48] LABS: TOTAL 25(OH) VITAMIN D 54.4 NG/ML (30.0-100.0)
== END ==
LOC: M PLALAB 07:15
PROVIDERS: ATTEND Nurse Practitioner Family
DX: I10 Essential (primary) hypertension (principal); E78.2 Mixed hyperlipidemia; E55.9 Vitamin D deficiency, unspecified

== ENCOUNTER → 2021-09-26 | Outpatient (CLI) | payer BC | LOC: M RAD 09:39 | PROVIDERS: ATTEND Nurse Practitioner Family | DX: F17.210 Nicotine dependence, cigarettes, uncomplicated (principal) ==

== ENCOUNTER → 2021-09-26 | Outpatient (CLI) | payer BC | LOC: M WHC 10:57 | PROVIDERS: ATTEND Nurse Practitioner Family | DX: Z12.31 Encounter for screening mammogram for malignant neoplasm of breast (principal); Z80.3 Family history of malignant neoplasm of breast; Z78.0 Asymptomatic menopausal state ==

== ENCOUNTER → 2021-12-28 | Outpatient (REF) | payer BC | LOC: M WUC 18:34 | PROVIDERS: ATTEND Student in an Organized Health Care Education/Training Program | DX: R30.0 Dysuria (principal) ==

== ENCOUNTER → 2022-09-15 | Outpatient (CLI) | payer BC ==
[2022-09-15 11:48] LABS: ALBUMIN 3.7 G/DL (3.2-5.2); ALKALINE PHOSPHATASE 100 U/L (46-116); ALT/SGPT 37 U/L (7.0-40); AST/SGOT 23 U/L (<34); BILIRUBIN,TOTAL 0.5 MG/DL (0.3-1.2); BLOOD UREA NITROGEN 14 MG/DL (9-23); CALCIUM LEVEL 9.6 MG/DL (8.5-10.1); CARBON DIOXIDE LEVEL 27 MMOL/L (20-31); CHLORIDE LEVEL 106 MMOL/L (98-107); CHOLESTEROL LEVEL 210 MG/DL (<200); CHOLESTEROL RISK RATIO 4.46 (<5); CREATININE FOR GFR 0.75 MG/DL (0.55-1.30); GLOMERULAR FILTRATION RATE > 60.0 (>51); GLUCOSE, FASTING 88 MG/DL (60-100); LDL CHOLESTEROL 128.2 MG/DL (<100); POTASSIUM SERUM 4.3 MMOL/L (3.5-5.1); SODIUM LEVEL 139 MMOL/L (136-145); TOTAL PROTEIN 6.8 G/DL (5.7-8.2); TRIGLYCERIDES LEVEL 174 MG/DL (<150)
[2022-09-15 11:49] LABS: TOTAL 25(OH) VITAMIN D 65.2 NG/ML (20.0-100.0)
== END ==
LOC: M PLALAB 07:07
PROVIDERS: ATTEND Nurse Practitioner Family
DX: I10 Essential (primary) hypertension (principal)

== ENCOUNTER → 2022-09-18 | Outpatient (REF) | payer BC | LOC: M LAB REF 08:14 | PROVIDERS: ATTEND Nurse Practitioner Family | DX: Z12.4 Encounter for screening for malignant neoplasm of cervix (principal); R87.610 Atypical squamous cells of undetermined significance on cytologic smear of cervix (ASC-US) | CPT/HCPCS: 87624; G0123 ==

== ENCOUNTER → 2022-10-10 | Outpatient (CLI) | payer BC | LOC: M WHC 09:22 | PROVIDERS: ATTEND Nurse Practitioner Family | DX: Z12.31 Encounter for screening mammogram for malignant neoplasm of breast (principal) ==

== ENCOUNTER → 2022-10-10 | Outpatient (CLI) | payer BC | LOC: M RAD 07:35 | PROVIDERS: ATTEND Nurse Practitioner Family | DX: F17.210 Nicotine dependence, cigarettes, uncomplicated (principal) ==

== ENCOUNTER → 2023-04-08 | Outpatient (CLI) | payer BC ==
[2023-04-08 12:03] LABS: ALBUMIN 3.6 G/DL (3.2-5.2); ALKALINE PHOSPHATASE 96 U/L (46-116); ALT/SGPT 29 U/L (7.0-40); AST/SGOT 21 U/L (<34); BILIRUBIN,TOTAL 0.6 MG/DL (0.3-1.2); BLOOD UREA NITROGEN 11 MG/DL (9-23); CALCIUM LEVEL 9.6 MG/DL (8.5-10.1); CARBON DIOXIDE LEVEL 27 MMOL/L (20-31); CHLORIDE LEVEL 110 MMOL/L (98-107); CHOLESTEROL LEVEL 149 MG/DL (<200); CHOLESTEROL RISK RATIO 3.21 (<5); GLOMERULAR FILTRATION RATE > 60.0 (>51); GLUCOSE, FASTING 95 MG/DL (60-100); HDL CHOLESTEROL 46.3 MG/DL (>40); LDL CHOLESTEROL 81.3 MG/DL (<100); NON-HDL-C 102.7 MG/DL; POTASSIUM SERUM 4.5 MMOL/L (3.5-5.1); SODIUM LEVEL 145 MMOL/L (136-145); TOTAL PROTEIN 6.2 G/DL (5.7-8.2); TRIGLYCERIDES LEVEL 107 MG/DL (<150)
== END ==
LOC: M PLALAB 07:39
PROVIDERS: ATTEND Nurse Practitioner Family
DX: E78.2 Mixed hyperlipidemia (principal)

== ENCOUNTER 2023-06-10 08:27 | Day surgery (SDC) | payer BC ==
[~2023-06-10] VITALS: Ht 162.6 cm; Wt 84.4 kg
[~2023-06-10 08:27] MED LIST changes: +ATOR40TA75 PO; +NOXI1TAB PO; +NS 1,000 ML IV ONE; +OMEP-173 PO
[2023-06-10] MEDS ORDERED: fentaNYL 100 MCG/2 ML INJECTION As Ordered ONE (09:36)
[2023-06-10] MEDS ORDERED: propofoL 200 MG/20 ML VIAL As Ordered ONE (10:01)
[2023-06-10 10:17] VITALS: TEMP 97.3
[2023-06-10 10:40] VITALS: BP 100/55; O2SAT 97
== END 2023-06-10 10:51 | disposition home or self-care (01) ==
LOC: M OPP 08:27
PROVIDERS: ATTEND Internal Medicine Gastroenterology
DX: Z12.11 Encounter for screening for malignant neoplasm of colon (principal); Z80.0 Family history of malignant neoplasm of digestive organs; D12.6 Benign neoplasm of colon, unspecified; K64.0 First degree hemorrhoids; K57.30 Diverticulosis of large intestine without perforation or abscess without bleeding; K31.A11 Gastric intestinal metaplasia without dysplasia, involving the antrum; K22.89 Other specified disease of esophagus; R12 Heartburn; F17.200 Nicotine dependence, unspecified, uncomplicated; Z79.02 Long term (current) use of antithrombotics/antiplatelets; Z79.51 Long term (current) use of inhaled steroids; Z79.52 Long term (current) use of systemic steroids; Z79.899 Other long term (current) drug therapy
CPT/HCPCS: 43239; 45385; 88305; J3010

== ENCOUNTER → 2023-11-04 | Outpatient (CLI) | payer BC ==
[~2023-11-04] MED LIST changes: -NS 1,000 ML IV ONE
== END ==
LOC: M RAD 08:43
PROVIDERS: ATTEND Nurse Practitioner Family
DX: Z12.2 Encounter for screening for malignant neoplasm of respiratory organs (principal); F17.210 Nicotine dependence, cigarettes, uncomplicated

== ENCOUNTER → 2024-11-23 | Outpatient (CLI) | payer BC | LOC: M WHC 14:02 | PROVIDERS: ATTEND Nurse Practitioner Family | DX: R92.8 Other abnormal and inconclusive findings on diagnostic imaging of breast (principal) | CPT/HCPCS: 77065; G0279 ==